=== PATIENT | male | born 1990 | race Two or more races ===

== ENCOUNTER 2018-05-16 11:32 | Emergency (ER) | payer OTHER ==
--- NOTE | 2018-05-16 12:58 | ED Physician Documentation ---
History of Present Illness - Stated complaint Stated Complaint: BACK PX - Chief complaint Chief Complaint: Back Pain - History obtained from History obtained from: Patient - History of Present Illness Timing: Yesterday Pain level max: 7 Pain level now: 5 Quality: tight - Additonal information Additional information: Patient is a 27-year-old male who states that he was doing lifts at the gym yesterday when he felt something shift in his back, had gradual onset of pain yesterday. This pain has increased today. Worse with movement, better with rest. No numbness or tingling. No bowel or bladder incontinence. No IV drug use. No fevers. Pain is better with remaining in 1 spot Review of Systems Constitutional: denies: Fever, Chills Respiratory: denies: Cough GI: denies: Nausea, Vomiting, Diarrhea Skin: denies: Rash Musculoskeletal: denies: Neck pain Neurologic: denies: Focal weakness, Numbness, Headache PD PAST MEDICAL HISTORY - Past Medical History Past Medical History: No - Past Surgical History Past Surgical History: No - Present Medications Home Medications: Ambulatory Orders Medication Instructions Recorded Confirmed Cyclobenzaprine [Flexeril] 10 mg PO TID PRN #20 tablet 05/16/18 Meloxicam [Mobic] 15 mg PO DAILY PRN #20 tablet 05/16/18 - Allergies Allergies/Adverse Reactions: Allergies Allergy/AdvReac Type Severity Reaction Status Date / Time No Known Drug Allergies Allergy Verified 05/16/18 11:47 - Social History Does the pt smoke?: No Smoking Status: Never smoker Does the pt drink ETOH?: Yes Does the pt have substance abuse?: No - Immunizations Immunizations are current?: Yes - POLST Patient has POLST: No PD ED PE NORMAL - Vitals Vital signs reviewed: Yes - General General: Alert and oriented X 3, No acute distress, Well developed/nourished - HEENT HEENT: PERRL, Moist mucous membranes - Neck Neck: Supple, no meningeal sign - Cardiac Cardiac: RRR, Strong equal pulses - Respiratory Respiratory: No respiratory distress, Clear bilaterally - Abdomen Abdomen: Soft, Non tender, Non distended - Back Back: No spinal TTP, Other (Paraspinal spasm bilaterally, no midline tenderness to palpation or percussion. No step-off or deformity) - Derm Derm: Warm and dry - Extremities Extremities: No edema, No calf tenderness / cord, Other (normal bilateral lower extremity patellar and ankle jerk reflexes. Normal great toe extension bilaterally) - Neuro Neuro: Alert and oriented X 3, No motor deficit, No sensory deficit - Psych Psych: Normal mood, Normal affect Results - Vitals Vitals: Vital Signs - 24 hr 05/16/18 05/16/18 11:46 13:20 Temperature 36.2 C L 36.4 C L Heart Rate 67 65 Respiratory 18 16 Rate Blood Pressure 133/82 H 127/66 O2 Saturation 99 98 Oxygen O2 Source Room air PD MEDICAL DECISION MAKING - ED course Complexity details: reviewed results, re-evaluated patient, considered differential (no cauda equina, no spinal epidural abscess, no fracture, no aortic dissection or evidence of aneursym rupture), d/w patient ED course: Patient is a 27-year-old male who presents to the emergency department with what appears to be a lumbar strain. No evidence of fracture. No evidence of cauda equina, epidural abscess. Will trial on pain medications and muscle relaxants for home. Ambulating well in the emergency department. Patient counseled regarding signs and symptoms for which I believe and urgent re- evaluation would be necessary. Patient with good understanding of and agreement to plan and is comfortable going home at this time This document was made in part using voice recognition software. While efforts are made to proofread this document, sound alike and grammatical errors may occur. - Sepsis Event Vital Signs: Vital Signs - 24 hr 05/16/18 05/16/18 11:46 13:20 Temperature 36.2 C L 36.4 C L Heart Rate 67 65 Respiratory 18 16 Rate Blood Pressure 133/82 H 127/66 O2 Saturation 99 98 Oxygen O2 Source Room air Departure - Departure Disposition: 01 Home, Self Care Clinical Impression: Back strain Qualifiers: Encounter type: initial encounter Qualified Code(s): S39.012A - Strain of muscle, fascia and tendon of lower back, initial encounter Condition: Good Instructions: ED Low Back Pain Injury, ED Sprain Strain Lumbar Follow-Up: MINESH Paz [Provider Group] Prescriptions: Cyclobenzaprine [Flexeril] 10 mg PO TID PRN #20 tablet PRN Reason: Spasms Meloxicam [Mobic] 15 mg PO DAILY PRN #20 tablet PRN Reason: pain Comments: Return if you worsen. Do not drive or operate heavy machinery while taking the flexeril. Follow up with your doctor for further care. Discharge Date/Time: 05/16/18 13:21
[2018-05-16] MEDS: CYCLOBENZAPRINE 10 MG TABLET PO STA (13:10)
[2018-05-16] MEDS: KETOROLAC 60 MG/2 ML VIAL IM STA (13:10)
[2018-05-16 13:21] VITALS: BP 127/66
== END 2018-05-16 13:21 | disposition home or self-care (01) ==
LOC: ED 11:32
DX: S39.012A Strain of muscle, fascia and tendon of lower back, initial encounter (principal); X50.0XXA Overexertion from strenuous movement or load, initial encounter; Y93.B3 Activity, free weights; Y92.89 Other specified places as the place of occurrence of the external cause
CPT/HCPCS: 96372; 99283

== ENCOUNTER 2020-02-16 11:50 | Emergency (ER) | payer OTHER ==
--- NOTE | 2020-02-16 12:46 | ED Physician Documentation ---
PD HPI LOWER EXT INJURY - Stated complaint Stated Complaint: R FT PX - Chief complaint Chief Complaint: Trauma Ext - History obtained from History obtained from: Patient - History of Present Illness PD HPI LOW EXT INJURY LOCATION: Right, Foot, Toe Type of injury: Fall, Twist (He states he fell down some stairs yesterday with a twisting and impact near the base of the great toe. It was hurting some at the time but did not have any weakness of movement or numbness. He states he is noticed more swelling in the foot today now feels weaker for dorsiflexion of the great toe.) Timing - onset: Yesterday Timing - details: Abrupt onset, Still present (Feeling a little worse today with swelling and some weakness of movement of the toe) Worsened by: Moving Associated symptoms: Weakness, Swelling. No: Numbness, Discolored Similar symptoms before: Has not had sx before Review of Systems Skin: denies: Abrasion (s), Laceration (s) Neurologic: reports: Focal weakness (feels weaker for dorsiflexion of the great toe; felxion is okay.). denies: Numbness PD PAST MEDICAL HISTORY - Past Medical History Past Medical History: No - Past Surgical History Past Surgical History: No - Present Medications Home Medications: Ambulatory Orders Medication Instructions Recorded Confirmed Cyclobenzaprine [Flexeril] 10 mg PO TID PRN #20 tablet 05/16/18 Meloxicam [Mobic] 15 mg PO DAILY PRN #20 tablet 05/16/18 Ibuprofen [Motrin] 600 mg PO TID PRN #25 tab 02/16/20 - Allergies Allergies/Adverse Reactions: Allergies Allergy/AdvReac Type Severity Reaction Status Date / Time No Known Drug Allergies Allergy Verified 02/16/20 12:04 - Social History Does the pt smoke?: No Smoking Status: Never smoker Does the pt drink ETOH?: Yes Does the pt have substance abuse?: No - Immunizations Immunizations are current?: Yes - POLST Patient has POLST: No PD ED PE NORMAL - Vitals Vital signs reviewed: Yes - General General: Alert and oriented X 3, No acute distress, Well developed/nourished - Derm Derm: Normal color, Warm and dry - Extremities Extremities: Other (tender around right great toe MTP with some swelling. ) - Neuro Neuro: No motor deficit (He is able to flex and extend the great toe though seems a little weaker for extension but is still engaged. It does seem to hurt him to do it. There is no obvious deformity of the toe. There is no redness around the abdomen TP.), No sensory deficit Results - Vitals Vitals: Vital Signs - 24 hr 02/16/20 12:04 Temperature 36.6 C Heart Rate 80 Respiratory 17 Rate Blood Pressure 169/65 H O2 Saturation 99 Oxygen O2 Source Room air - Rads (name of study) right foot Radiology: Prelim report reviewed, See rad report (No fractures.) PD MEDICAL DECISION MAKING - ED course Complexity details: considered differential (We will get an x-ray to ensure no fractures. Seems likely a sprain and has having some difficulty movement due to swelling currently. There is still engagement for extension so does not seem like a tendon rupture. It was not week initially after the event so again seems likely related to swelling.), d/w patient Departure - Departure Disposition: 01 Home, Self Care Clinical Impression: Foot sprain Qualifiers: Encounter type: initial encounter Laterality: right Qualified Code(s): S93.601A - Unspecified sprain of right foot, initial encounter Condition: Stable Record reviewed to determine appropriate education?: Yes Instructions: ED Sprain Foot Follow-Up: ABBIE MCELROY [Primary Care Provider] - Prescriptions: Ibuprofen [Motrin] 600 mg PO TID PRN #25 tab PRN Reason: Pain Comments: Your x-ray appears normal without any signs of fracture. It does not clinically seem like a tendon rupture. I presume there is weakness for movement due to the swelling and that should improve over the next few days. Firm soled shoe to reduce flexion around the toe joint. Elevate ice and rested often today to reduce swelling. Anti-inflammatory of ibuprofen 3 times a day f or the next several days and then as needed. I think he should be improving to regular activity over the next few days. Forms: Activity restrictions
[2020-02-16] MEDS ORDERED: IBUPROFEN 600 MG TABLET PO STA (13:09)
[2020-02-16 13:56] VITALS: BP 130/78
--- NOTE | 2020-02-16 14:22 | XRAY Report ---
Reason: pain at base great toe Procedure Date: 02/16/2020 Accession Number: [id number] / [id number] Procedure: XR - Foot 3 View RT CPT Code: Final Report FULL RESULT: EXAM: RIGHT FOOT RADIOGRAPHY EXAM DATE: 02/16/2020 01:41 PM. CLINICAL HISTORY: Pain at base great toe. COMPARISON: None. TECHNIQUE: 3 views. FINDINGS: Bones: Normal. No fractures or bone lesions. Joints: Normal. No subluxations. Soft Tissues: There is soft tissue swelling around the great toe MTP joint. IMPRESSION: 1. Soft tissue swelling around the great toe MTP joint. 2. No acute fractures are evident. RADIA
== END 2020-02-16 13:56 | disposition home or self-care (01) ==
LOC: ED 11:50
DX: S93.601A Unspecified sprain of right foot, initial encounter (principal); W10.8XXA Fall (on) (from) other stairs and steps, initial encounter
CPT/HCPCS: 73630; 99283; A9270

== ENCOUNTER 2020-07-25 08:42 | Emergency (ER) | payer OTHER ==
--- NOTE | 2020-07-25 09:02 | ED Physician Documentation ---
PD HPI UPPER EXT INJURY - Stated complaint Stated Complaint: L HAND PX - Chief complaint Chief Complaint: Ext Problem - History obtained from History obtained from: Patient - History of Present Illness Location: Left, Finger (thumb) Type of injury: Other (he noted onset of pain left thumb last evening, worse today. Had been doing some work with hands but only normal/usual activity. No abrupt injury/onset.). No: Fall, Twist Timing - onset: Yesterday Timing - duration: Days (2) Timing - details: Gradual onset, Still present Worsened by: Moving, Other (moving thumb mostly to the lateral and hyperextension.) Associated symptoms: No: Weakness, Numbness, Swelling Similar symptoms before: Has not had sx before Recently seen: Not recently seen Review of Systems Skin: denies: Rash, Lesions Neurologic: denies: Focal weakness, Numbness PD PAST MEDICAL HISTORY - Past Medical History Past Medical History: No - Past Surgical History Past Surgical History: No - Present Medications Home Medications: Ambulatory Orders Medication Instructions Recorded Confirmed Cyclobenzaprine [Flexeril] 10 mg PO TID PRN #20 tablet 05/16/18 Meloxicam [Mobic] 15 mg PO DAILY PRN #20 tablet 05/16/18 Ibuprofen [Motrin] 600 mg PO TID PRN #25 tab 02/16/20 Naproxen 500 mg PO BID #25 tablet 07/25/20 - Allergies Allergies/Adverse Reactions: Allergies Allergy/AdvReac Type Severity Reaction Status Date / Time No Known Drug Allergies Allergy Verified 07/25/20 08:54 - Social History Does the pt smoke?: No Smoking Status: Never smoker Does the pt drink ETOH?: Yes Does the pt have substance abuse?: No - Immunizations Immunizations are current?: Yes - POLST Patient has POLST: No PD ED PE NORMAL - Vitals Vital signs reviewed: Yes - General General: Alert and oriented X 3, No acute distress, Well developed/nourished - Derm Derm: Normal color, Warm and dry, No rash - Extremities Extremities: Other (ledft thumb with some tenderness radial side and dorsal. No crepitance on ROM. Hurts for extension and medial movement against resistance. No redness nor swelling. ) - Neuro Neuro: Alert and oriented X 3, No motor deficit, No sensory deficit Results - Vitals Vitals: Vital Signs - 24 hr 07/25/20 07/25/20 08:48 10:12 Temperature 36.3 C L 36.2 C L Heart Rate 73 76 Respiratory 16 16 Rate Blood Pressure 130/84 H 132/68 H O2 Saturation 100 99 Oxygen O2 Source Room air - Rads (name of study) left thumb Radiology: Prelim report reviewed (no fractures nor arthritic changes), See rad report PD MEDICAL DECISION MAKING - ED course Complexity details: reviewed results, considered differential (seems likely tendonitis. ), d/w patient Departure - Departure Disposition: 01 Home, Self Care Clinical Impression: Thumb tendonitis Condition: Stable Record reviewed to determine appropriate education?: Yes Instructions: [place] Tenosynovitis Follow-Up: [facility] [Provider Group] Prescriptions: Naproxen 500 mg PO BID #25 tablet Comments: Your x-ray is normal. Presume this is an irritation of the tendon around the thumb and should improve with some anti-inflammatories and protected movement of the thumb. I would anticipate improvement over several days and resolved in 3 to 5 days. Recheck if not improving in that timeframe. Forms: Activity restrictions Discharge Date/Time: 07/25/20 10:15
[2020-07-25] MEDS ORDERED: IBUPROFEN 600 MG TABLET PO STA (09:15)
--- NOTE | 2020-07-25 09:43 | XRAY Report ---
PROCEDURE: Finger(s) LT INDICATIONS: thumb base pain since last night TECHNIQUE: AP hand, 2 views of the first finger(s) acquired. COMPARISON: None FINDINGS: Bones: No fractures or dislocations. No suspicious bony lesions. Soft tissues: No suspicious soft tissue calcifications. IMPRESSION: No significant plain film abnormality is seen. Please correlate with focal tenderness. If there is point tenderness (or other clinical concern for a fracture not seen on these plain films) then please consider a dedicated CT study or a short term fo llow up plain film series for further evaluation. If there is strong clinical concern for internal derangement of fourth, please consider a scheduled, dedicated MRI for further evaluation (assuming that there is no contraindication). Reviewed by: Taz Hanks MD on 07/25/2020 8:41 AM [facility] Approved by: Taz Hanks MD on 07/25/2020 8:41 AM [facility] Station ID: [id number]
[2020-07-25 10:15] VITALS: BP 132/68
== END 2020-07-25 10:15 | disposition home or self-care (01) ==
LOC: ED 08:42
DX: M77.9 Enthesopathy, unspecified (principal)
CPT/HCPCS: 73140; 99283; A9270

== ENCOUNTER 2020-11-25 12:02 | Emergency (ER) | payer OTHER ==
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
--- NOTE | 2020-11-25 12:40 | XRAY Report ---
PROCEDURE: Ankle 3 View LT INDICATIONS: fall; r/o fx TECHNIQUE: 3 views of the ankle were acquired. COMPARISON: None FINDINGS: Bones: No fractures or dislocations. Ankle mortise is normally aligned. No suspicious bony lesions . Soft tissues: No tibiotalar joint effusion. Achilles tendon appears normal. IMPRESSION: No evidence acute bony abnormality of the left ankle. Reviewed by: Yoshi Vazquez MD on 11/25/2020 12:38 PM [facility] Approved by: Yoshi Vazquez MD on 11/25/2020 12:38 PM [facility] Station ID: [id number]
[2020-11-25 13:04] VITALS: BP 146/74
--- OUTSIDE RECORDS SUMMARY | 2020-12-02 00:43 | EXTERNAL MEDICAL SUMMARY RPT | Continuity of Care Document ---
:1990 Demographics Phone Unavailable Preferred Language Unknown Marital Status Unknown [employer] Affiliation Unknown Race Unknown Ethnic Group Unknown Author Organization [place] Address [address] [phone] Phone Support Name Relationship Address Phone [place].N Unavailable Unavailable Unavailable Allergies date description facility NO KNOWN ALLERGIES [facility] No Known Drug Allergies [facility] Social History date description facility [phone]
== END 2020-11-25 13:02 | disposition home or self-care (01) ==
LOC: ED 12:02
DX: S93.402A Sprain of unspecified ligament of left ankle, initial encounter (principal); W01.0XXA Fall on same level from slipping, tripping and stumbling without subsequent striking against object, initial encounter; Y93.E9 Activity, other interior property and clothing maintenance; Y92.009 Unspecified place in unspecified non-institutional (private) residence as the place of occurrence of the external cause
CPT/HCPCS: 99283

== ENCOUNTER 2022-02-17 02:36 | Emergency (ER) | payer OTHER ==
[2022-02-17 04:42] LABS: ALBUMIN 4.4 g/dL (3.2-5.5); ALBUMIN/GLOBULIN RATIO 1.8 (1.0-2.2); BILIRUBIN,TOTAL 1.4 mg/dL (0.2-1.0); CALCIUM 8.9 mg/dL (8.5-10.3); CREATININE 1.1 mg/dL (0.6-1.2); POTASSIUM 3.7 mmol/L (3.5-5.0); TOTAL PROTEIN 6.9 g/dL (6.7-8.2)
[2022-02-17 04:43] LABS: BASOPHILS # (AUTO) 0.1 10^3/uL (0.0-0.1); BASOPHILS % (AUTO) 0.8 %; EOSINOPHILS # (AUTO) 0.2 10^3/uL (0.0-0.7); EOSINOPHILS % (AUTO) 1.8 %; HCT - HEMATOCRIT 32.1 % (42.0-52.0); HGB - HEMOGLOBIN 10.2 g/dL (14.0-18.0); LYMPHOCYTES # (AUTO) 2.8 10^3/uL (1.5-3.5); LYMPHOCYTES % (AUTO) 31.3 %; MEAN CORPUSCULAR HEMOGLOBIN 20.2 pg (27.0-31.0); MEAN CORPUSCULAR HGB CONC 31.8 g/dL (32.0-36.0); MEAN CORPUSCULAR VOLUME 63.7 fL (80.0-94.0); MONOCYTES # (AUTO) 0.8 10^3/uL (0.0-1.0); MONOCYTES % (AUTO) 8.9 %; NEUTROPHILS % (AUTO) 56.4 %; NRBC ABSOLUTE COUNT (AUTO) 0.03 x10^3/uL; NUCLEATED RED BLOOD CELLS AUTO 0.3 /100WBC; PLT - PLATELET COUNT 155 10^3/uL (130-450); RED BLOOD COUNT 5.04 10^6/uL (4.70-6.10); RED CELL DISTRIBUTION WIDTH 16.3 % (12.0-15.0); WHITE BLOOD COUNT 8.8 x10^3/uL (4.8-10.8)
[2022-02-17 04:44] LABS: SLIDE REVIEW? Indicated
[2022-02-17 04:45] LABS: PLATELET ESTIMATE, MANUAL NORMAL (130-450,000) (NORMAL)
[2022-02-17 07:29] VITALS: BP 114/77
--- NOTE | 2022-02-17 07:29 | ED Physician Documentation ---
PD HPI CHEST PAIN - Stated complaint Stated Complaint: CHEST PX - Chief complaint Chief Complaint: Cardiac - Additional information Additional information[facility] PD PAST MEDICAL HISTORY - Past Medical History Past Medical History: No Cardiovascular: None Respiratory: None Neuro: None Endocrine/Autoimmune: None GI: None : None HEENT: None Psych: None Musculoskeletal: None Derm: None - Past Surgical History Past Surgical History: No - Present Medications Home Medications: Ambulatory Orders Medication Instructions Recorded Confirmed No Known Home Medications 02/17/22 02/17/22 - Allergies Allergies/Adverse Reactions: Allergies Allergy/AdvReac Type Severity Reaction Status Date / Time No Known Drug Allergies Allergy Verified 02/17/22 04:03 - Social History Does the pt smoke?: No Smoking Status: Never smoker Does the pt drink ETOH?: Yes Does the pt have substance abuse?: No - Immunizations Immunizations are current?: Yes - POLST Patient has POLST: No Results - Vitals Vitals: Vital Signs - 24 hr 02/17/22 02/17/22 02/17/22 02:40 02:42 03:21 Temperature 36.1 C L Heart Rate 72 61 Respiratory 16 12 Rate Blood Pressure 150/106 H 135/101 H Blood Pressure 135/101 H [Left] O2 Saturation 98 98 02/17/22 02/17/22 04:21 04:45 Temperature 36.9 C Heart Rate 58 L 68 Respiratory 12 20 Rate Blood Pressure 116/80 114/77 Blood Pressure [Left] O2 Saturation 94 100 Oxygen O2 Source Room air - Labs Labs: Laboratory Tests 02/17/22 02/17/22 02/17/22 03:33 03:33 03:33 WBC RBC Hgb Hct MCV MCH MCHC RDW Plt Count Neut # (Auto) Lymph # (Auto) [place] # (Auto) Eos # (Auto) Baso # (Auto) Absolute Nucleated RBC Nucleated RBC % Manual Slide Review Platelet Estimate RBC Morph Micro Appear D-Dimer 204.0 Sodium 137 Potassium 3.7 Chloride 105 Carbon Dioxide 23 Anion Gap 9.0 BUN 20 Creatinine 1.1 Estimated GFR (MDRD) 78 L Glucose 111 H Calcium 8.9 Total Bilirubin 1.4 H AST 24 ALT 44 Alkaline Phosphatase 68 Troponin I High Sens < 2.3 L Total Protein 6.9 Albumin 4.4 Globulin 2.5 Albumin/Globulin Ratio 1.8 02/17/22 03:33 WBC 8.8 RBC 5.04 Hgb 10.2 L Hct 32.1 L MCV 63.7 L MCH 20.2 L MCHC 31.8 L RDW 16.3 H Plt Count 155 Neut # (Auto) 5.0 Lymph # (Auto) 2.8 [place] # (Auto) 0.8 Eos # (Auto) 0.2 Baso # (Auto) 0.1 Absolute Nucleated RBC 0.03 Nucleated RBC % 0.3 Manual Slide Review Indicated Platelet Estimate NORMAL (130-450,000) RBC Morph Micro Appear 1+ BASO STIPPLING D-Dimer Sodium Potassium Chloride Carbon Dioxide Anion Gap BUN Creatinine Estimated GFR (MDRD) Glucose Calcium Total Bilirubin AST ALT Alkaline Phosphatase Troponin I High Sens Total Protein Albumin Globulin Albumin/Globulin Ratio Departure - Departure Disposition: 01 Home, Self Care Clinical Impression: Chest pain Qualifiers: Chest pain type: pleurodynia Qualified Code(s): R07.81 - Pleurodynia Condition: Good Instructions: ED Chest Pain Atypical Unkn Cause, ED Chest Pain Pleurisy Follow-Up: MINESH Paz [Provider Group] Comments: The cause of your chest pain is not clear at this time. Your EKG, chest xray, and blood tests are all unremarkable (as we discussed, you do have mild anemia which you have indicated is not new). Follow up with your primary care provider, next available appointment for reevaluation. You can take ibuprofen 400mg-600mg by mouth every six hours as needed for pain Discharge Date/Time: 02/17/22 04:51
--- NOTE | 2022-02-17 08:24 | XRAY Report ---
PROCEDURE: Chest 2 View X-Ray INDICATIONS: LEFT CHEST PAIN TECHNIQUE: 2 view(s) of the chest. COMPARISON: None. FINDINGS: Surgical changes and devices: None. Lungs and pleura: No pleural effusions or pneumothorax. Lungs are clear. Mediastinum: Mediastinal contours are normal. Heart size is normal. Bones and chest wall: No suspicious bony abnormalities. Soft tissues appear unremarkable. IMPRESSION: No acute cardiopulmonary disease. Final interpretation is concordant with preliminary re port. Reviewed by: Ela Tse MD on 02/17/2022 8:22 AM PDT Approved by: Ela Tse MD on 02/17/2022 8:22 AM PDT Station ID: [id number]
== END 2022-02-17 04:51 | disposition home or self-care (01) ==
LOC: ED 02:36
DX: R07.9 Chest pain, unspecified (principal)
CPT/HCPCS: 36415; 80053; 83690; 84484; 85025; 85379; 93005; 99282; 99284